=== PATIENT | male | born 1940 | race Caucasian/White ===

== ENCOUNTER 2016-11-01 08:14 | Emergency (ER) | payer MEDICARE ==
[~2016-11-01 08:14] MED LIST: AMLODIPINE BESY10 M1 PO; ASPIR 8181 M1 PO; ASPIRIN EC81 MG PO; AUGMENTIN 875-1 EAC2 PO; LOPRESSOR50 M1 PO; NICODERM CQ1 EAC1; NYSTATIN100000 UNI SSW; ORAPRED ODT10 MG PO; PACERONE200 M1 PO; SPIRIVA18 MC1 INH; SYMBICORT 160-1 PUFF INH; TYLENOL LIQUID PO; ZITHROMAX250 M1 PO
[2016-11-01 08:44] LABS: BASO % 0.7 % (0-2); BASO ABSOLUTE COUNT 0.1 tho/cmm (0.0-0.2); EOSINOPHIL ABSOLUTE COUNT 0.2 tho/cmm (0.0-0.7); HCT-HEMATOCRIT 43.5 % (36.0-53.5); HGB-HEMOGLOBIN 14.9 gm/dl (13.5-17.0); IMMATURE GRANULOCYTES ABSOLUTE 0.02 tho/cmm (0-0.03); IMMATURE GRANULOCYTES PERCENT 0.3 % (0-0.3); LYMPH % 17.6 % (20-45); LYMPH ABSOLUTE COUNT 1.3 tho/cmm (0.8-4.5); MCH (MEAN CORPUSCULAR HGB) 31.9 pg (28.0-32.0); MCHC MEAN CORPUSCULAR HGB CONC 34.3 % (32.0-36.0); MCV (MEAN CELL VOLUME) 93.1 fl (82.0-96.0); MEAN PLATELET VOLUME 10.1 cmc (9.4-12.4); MONO % 14.6 % (0-12); MONOCYTE ABSOLUTE COUNT 1.1 tho/cmm (0.0-1.2); NEUTROPHIL ABSOLUTE COUNT 4.6 tho/cmm (1.6-8.0); NEUTROPHIL-AUTOMATED 4.6 tho/cmm (1.6-8.0); NEUTROPHILS % 63.8 % (40-80); PLATELET COUNT 220 tho/cmm (150-450); RED BLOOD COUNT 4.67 mil/cmm (4.40-5.70); RED CELL DISTRIBUTION WIDTH 14.8 % (12.4-16.4); WHITE BLOOD COUNT 7.3 tho/cmm (4.0-10.0)
[2016-11-01] MEDS ORDERED: XARELTO20 M1 PO (08:49)
[2016-11-01] MEDS ORDERED: PROAIR HFA8.5 GM INH (08:49)
[2016-11-01] MEDS ORDERED: LASIX20 M1 PO (08:50)
[2016-11-01 08:57] LABS: ANION GAP 10 mmol/L (0-20); BLOOD UREA NITROGEN 7 mg/dl (6-24); CALCIUM 8.7 mg/dl (8.5-10.5); CARBON DIOXIDE-VENOUS 30 mmol/L (22-32); CHLORIDE 104 mmol/l (96-110); CREATININE 1.19 mg/dl (0.60-1.30); GLUCOSE 112 mg/dL (70-110); POTASSIUM 3.7 mmol/L (3.7-5.1); SODIUM 140 mmol/L (135-145); eGFR VALUE FOR BLACK 69 mL/Min
[2016-11-01] MEDS ORDERED: ZITHROMAX250 M1 PO (10:14)
== END 2016-11-01 10:31 ==
LOC: EDMED 08:14
PROVIDERS: Emergency Medicine
DX: R07.81 Pleurodynia (principal); I82.409 Acute embolism and thrombosis of unspecified deep veins of unspecified lower extremity; R91.1 Solitary pulmonary nodule; I10 Essential (primary) hypertension; Z85.038 Personal history of other malignant neoplasm of large intestine; Z87.891 Personal history of nicotine dependence; Z79.899 Other long term (current) drug therapy; Z98.890 Other specified postprocedural states
CPT/HCPCS: J7030; Q9967